=== PATIENT | male | born 2000 | race African-American/Black ===

== ENCOUNTER 2025-05-21 05:41 | Emergency (ER) | payer BC ==
[~2025-05-21] VITALS: Ht 180.3 cm; Wt 83.5 kg
[2025-05-21] MEDS ORDERED: ACETAMINOPHEN ES 500 MG TABLET ONE (06:25)
[2025-05-21] MEDS: ACETAMINOPHEN 325 MG TABLET PO ONE (06:27)
[2025-05-21 07:27] VITALS: BP 118/66; TEMP 99.8; O2SAT 97
== END 2025-05-21 07:27 | disposition home or self-care (01) ==
LOC: ER 05:41
DX: T88.1XXA Other complications following immunization, not elsewhere classified, initial encounter (principal); K64.4 Residual hemorrhoidal skin tags; B34.9 Viral infection, unspecified; Z88.6 Allergy status to analgesic agent; Z20.822 Contact with and (suspected) exposure to COVID-19